=== PATIENT | female | born 1985 | race African-American/Black ===

== ENCOUNTER 2018-03-16 02:06 | Inpatient (IN) | payer OTHER ==
[2018-03-16 02:53] LABS: ABS Basophils 0 10^3/ul (0-0.2); ABS Eosinophils 0.1 10^3/ul (0-0.6); ABS Lymphocytes 1.8 10^3/ul (1.0-4.8); ABS Monocytes 0.4 10^3/ul (0-0.8); ABS Neutrophils 4.8 10^3/ul (1.5-7.7); ABS Nucleated RBC 0 10^3/ul; Eosinophil % 1.1 % (0-6); Hematocrit 34 % (35-47); Hemoglobin 11.1 g/dl (12.0-16.0); Lymphocyte % 25.3 % (25-47); Mean Corpuscular HGB Conc 33 g/dl (31-36); Mean Corpuscular Hemoglobin 28 pg (27-31); Mean Corpuscular Volume 87 fL (80-97); Mean Platelet Volume 9.9 um3 (7.4-10.4); Nucleated Red Blood Cells % 0.1; Platelet Count 144 10^3/ul (150-450); Red Blood Count 3.91 10^6/ul (4.00-5.40); Red Cell Distribution Width 15 % (10.5-15)
--- NOTE | 2018-03-16 02:57 | PN ---
L&D Outpatient: Visit - Reproductive Information Estimated Due Date: 05/04/18 Gestational Age: 33 Weeks and 0 Days : 2 Para: 1 - Reason for Visit Visit Reason: Patient has a diagnosis of marginal previa and presents after an episode of vaginal bleeding at home. - Antepartal Records Antepartal Record: Reviewed, Complicated by: - Microcephaly and Marginal previa L&D Outpatient: ROS - Review of Systems Constitutional: Comfortable CV Complaint: No Respiratory: Shortness of Breath: No Gastrointestinal: No Nausea/Vomiting, Normal Bowel Movement Genitourinary: Bleeding - Not actively bleeding, No Dysuria, No Leaking Fluid Musculoskeletal: No Complaint Movement: Normal L&D Outpatient: Exam Vitals - Most Recent: Temp 98.8 BP 133/86 P 85 RR 18 Pox 100% RA - Cervical Exam Cervical Exam: Deferred - Abdominal Exam Abdomen Exam: Non-Tender, Fundal Height Consistent with Dates - Membranes Membrane Status: Intact - Ultrasound/Biophysical Profile Biophysical Profile: Normal Reactive NST L&D Outpatient: EFM - External Monitor Findings Baseline Heart Rate: 140 External Monitor Findings: Accelerations Present, No Pattern of Variable or Late Decelerations L&D Outpatient: Asses/Plan Assessment: 32 y/o lady with an IUP at 33 weeks EGA, marginal previa with a sentinel episode of vaginal bleeding and hemodinamically stable. Plan: Admit as Inpatient - Observation, Monitoring for bleeding, Steroids for lung maturity.
[2018-03-16] MEDS: Betamethasone INJ* 6 MG/ML 5 ML VIAL (30 MG) IM SCH (04:04)
[2018-03-16 11:17] LABS: ABS Basophils 0 10^3/ul (0-0.2); ABS Eosinophils 0 10^3/ul (0-0.6); ABS Lymphocytes 1.3 10^3/ul (1.0-4.8); ABS Monocytes 0.1 10^3/ul (0-0.8); ABS Neutrophils 7.5 10^3/ul (1.5-7.7); ABS Nucleated RBC 0 10^3/ul; Eosinophil % 0.2 % (0-6); Hematocrit 35 % (35-47); Hemoglobin 11.6 g/dl (12.0-16.0); Lymphocyte % 14.2 % (25-47); Mean Corpuscular HGB Conc 33 g/dl (31-36); Mean Corpuscular Hemoglobin 29 pg (27-31); Mean Corpuscular Volume 87 fL (80-97); Mean Platelet Volume 9.8 um3 (7.4-10.4); Nucleated Red Blood Cells % 0.1; Platelet Count 143 10^3/ul (150-450); Red Blood Count 4.06 10^6/ul (4.00-5.40); Red Cell Distribution Width 14 % (10.5-15); White Blood Count 8.9 10^3/ul (3.5-10.8)
[2018-03-16 12:01] LABS: INR 0.79 (0.77-1.02)
--- NOTE | 2018-03-16 18:48 | PN ---
Medicine Progress Note - Date of Service Date of Service: 03/16/18 - Subjective Subjective: Patient is resting comfortably, she denies vaginal bleeding, abdominal cramps or contractions. admits to movement. - Objective Objective: Current Medications Betamethasone Acet/Betameth SodPhos (Celestone*) 12 mg IM Q24H EDDA Stop: 03/17/18 04:01 Last Admin: 03/16/18 04:04 Dose: 12 mg Vital signs stable afebrile. Intake & Output 03/14/18 03/15/18 03/16/18 03/17/18 06:59 06:59 06:59 06:59 Intake Total 700 Output Total 1000 Balance -300 Weight 160 lb Intake: Oral 700 Output: Rivera 1000 Intake and Output Start: 03/16/18 02: 16 Freq: Status: Active Protocol: Created 03/16/18 02:16 System (Rec: 03/16/18 02:16 System [id number] ) Document 03/16/18 14:00 [id number] (Rec: 03/16/18 14:01 [id number]) Abdomen: Soft non tender and gravid. Laboratory Results - last 24 hr 03/16/18 03/16/18 03/16/18 02:28 02:28 10:58 WBC 7.0 8.9 RBC 3.91 L 4.06 Hgb 11.1 L 11.6 L Hct 34 L 35 MCV 87 87 MCH 28 29 MCHC 33 33 RDW 15 14 Plt Count 144 L 143 L MPV 9.9 9.8 Neut % (Auto) 67.7 84.5 H Lymph % (Auto) 25.3 14.2 L [place] % (Auto) 5.7 0.7 Eos % (Auto) 1.1 0.2 Baso % (Auto) 0.2 0.4 Absolute Neuts (auto) 4.8 7.5 Absolute Lymphs (auto) 1.8 1.3 Absolute Monos (auto) 0.4 0.1 Absolute Eos (auto) 0.1 0 Absolute Basos (auto) 0 0 Absolute Nucleated RBC 0 0 Nucleated RBC % 0.1 0.1 INR (Anticoag Therapy) Fibrinogen Blood Type O Positive Antibody Screen Negative 03/16/18 10:58 WBC RBC Hgb Hct MCV MCH MCHC RDW Plt Count MPV Neut % (Auto) Lymph % (Auto) [place] % (Auto) Eos % (Auto) Baso % (Auto) Absolute Neuts (auto) Absolute Lymphs (auto) Absolute Monos (auto) Absolute Eos (auto) Absolute Basos (auto) Absolute Nucleated RBC Nucleated RBC % INR (Anticoag Therapy) 0.79 Fibrinogen 475.1 H Blood Type Antibody Screen I/P patient with marginal placenta previa and IUP at 33 1/7 weeks admitted after a sentinel bleeding episode. On bedrest monitoring, she is to receive her second dose of Bethametasone early 03/17/18 if stable and no bleeding T/C discharge in Am of 03/17/18. - Labs Labs: Laboratory Results - last 24 hr 03/16/18 03/16/18 03/16/18 02:28 02:28 10:58 WBC 7.0 8.9 RBC 3.91 L 4.06 Hgb 11.1 L 11.6 L Hct 34 L 35 MCV 87 87 MCH 28 29 MCHC 33 33 RDW 15 14 Plt Count 144 L 143 L MPV 9.9 9.8 Neut % (Auto) 67.7 84.5 H Lymph % (Auto) 25.3 14.2 L [place] % (Auto) 5.7 0.7 Eos % (Auto) 1.1 0.2 Baso % (Auto) 0.2 0.4 Absolute Neuts (auto) 4.8 7.5 Absolute Lymphs (auto) 1.8 1.3 Absolute Monos (auto) 0.4 0.1 Absolute Eos (auto) 0.1 0 Absolute Basos (auto) 0 0 Absolute Nucleated RBC 0 0 Nucleated RBC % 0.1 0.1 INR (Anticoag Therapy) Fibrinogen Blood Type O Positive Antibody Screen Negative 03/16/18 10:58 WBC RBC Hgb Hct MCV MCH MCHC RDW Plt Count MPV Neut % (Auto) Lymph % (Auto) [place] % (Auto) Eos % (Auto) Baso % (Auto) Absolute Neuts (auto) Absolute Lymphs (auto) Absolute Monos (auto) Absolute Eos (auto) Absolute Basos (auto) Absolute Nucleated RBC Nucleated RBC % INR (Anticoag Therapy) 0.79 Fibrinogen 475.1 H Blood Type Antibody Screen - Assessment Assessment: TATYANA GARCIA is a 32 year old F. Patient's diagnosis is , LABOR CHECK.
[2018-03-16] MEDS ORDERED: diPHENhydraMINE PO* 50 MG PO ONE (23:00)
--- NOTE | 2018-03-17 02:19 | HP ---
General Information - General Information Maternal Age: 32 Grav: 2 Para: 1 SAB: 0 IEA: 0 Estimated Due Date: 05/04/18 Determined By: Early Ultrasound Gestational Age in Weeks and Days: 33 Weeks and 4 Days Maternal Blood Type and Rh: O Positive - Results this Serology/RPR Result: Non-Reactive Rubella Result: Immune HBsAg Result: Negative HIV Result: Negative GBS Culture Result: Negative Past Medical History Delivery History: Hx Uncomplicated Vaginal Delivery, See Records Pertinent Past Medical History: See Records Past Medical History Comment: Migraines Pertinent Past Surgical History: See Records Past Surgical History Comment: None Pertinent Family History: Non-Contributory - Antepartal Records Antepartal Records: Reviewed, Complicated by: - Placenta previa Review of Systems Constitutional: Comfortable CV Complaint: No Respiratory: Shortness of Breath: No Gastrointestinal: No Nausea/Vomiting, Normal Bowel Movement Genitourinary: Bleeding, No Dysuria Musculoskeletal: No Complaint Neurological: No Headache, No Visual Changes Movement: Normal - Patient admitted secondary to two episodes of significant vaginal bleeding in 24 hrs Exam Allergies/Adverse Reactions: Allergies No Known Allergies Allergy (Verified 12/17/12 23:54) Vital Signs 03/17/18 01:46 O2 Sat by Pulse 100 Oximetry Lab Values - Entire Visit: Laboratory Tests 03/16/18 03/16/18 03/16/18 02:28 02:28 10:58 WBC 7.0 8.9 RBC 3.91 L 4.06 Hgb 11.1 L 11.6 L Hct 34 L 35 MCV 87 87 MCH 28 29 MCHC 33 33 RDW 15 14 Plt Count 144 L 143 L MPV 9.9 9.8 Neut % (Auto) 67.7 84.5 H Lymph % (Auto) 25.3 14.2 L [place] % (Auto) 5.7 0.7 Eos % (Auto) 1.1 0.2 Baso % (Auto) 0.2 0.4 Absolute Neuts (auto) 4.8 7.5 Absolute Lymphs (auto) 1.8 1.3 Absolute Monos (auto) 0.4 0.1 Absolute Eos (auto) 0.1 0 Absolute Basos (auto) 0 0 Absolute Nucleated RBC 0 0 Nucleated RBC % 0.1 0.1 INR (Anticoag Therapy) Fibrinogen Blood Type O Positive Antibody Screen Negative 07/01/18 10:58 WBC RBC Hgb Hct MCV MCH MCHC RDW Plt Count MPV Neut % (Auto) Lymph % (Auto) [place] % (Auto) Eos % (Auto) Baso % (Auto) Absolute Neuts (auto) Absolute Lymphs (auto) Absolute Monos (auto) Absolute Eos (auto) Absolute Basos (auto) Absolute Nucleated RBC Nucleated RBC % INR (Anticoag Therapy) 0.79 Fibrinogen 475.1 H Blood Type Antibody Screen - Measurements Height: 5 ft 4.96 in Weight: 160 lb Weight in lbs: [id number] Body Mass Index (BMI): 26.6 Pre- Weight: 127 lb Weight Gained This : 33 lbs and 0 ozs - Exam Abdomen: No Upper Quadrant Pain Breast: Breast Exam Deferred CVA: No CVA Tenderness Extremities: No Edema Heart: Normal Rhythm/Heart Sounds HEENT: No Significant Findings Lungs: Clear Bilaterally Rectal: Rectal Exam Deferred Reflexes: DTR 2+ Thyroid: No Thyromegaly - Abdominal Exam Abdomen Exam: Non-Tender, Fundal Height Consistent with Dates - Ultrasound/Biophysical Profile Ultrasound Status: Not Done Biophysical Profile: Normal Reactive NST Targeted Exam Findings See L&D Outpatient Visit Provider Note for Findings: N/A - No Cervical exam- Placenta previa Membrane Status: Intact EFM Findings - External Monitor Findings Baseline Heart Rate: 130 External Monitor Findings: Accelerations Present, No Pattern of Variable or Late Decelerations Contractions: None Assessment/Plan - Obstetrical Risk Factors Risk Factors Comment: Placenta previa prematurity - Plan Plan: Observe, Steroids - Date/Time of Admission Date of Admission: 03/17/18 Time of Admission: 01:00
[2018-03-17] MEDS: Betamethasone INJ* 6 MG/ML 5 ML VIAL (30 MG) IM SCH (02:56)
[2018-03-17] MEDS ORDERED: Propofol* 10 MG/ML 20 ML BTL IV PUSH ONE (04:31)
[2018-03-17] MEDS ORDERED: Succinylcholine* 20 MG/ML 10 ML VIAL ONE (04:31)
[2018-03-17] MEDS ORDERED: fentaNYL* 50 MCG/ML 2 ML VIAL (100 MCG VIAL) ONE (04:31)
[2018-03-17] MEDS ORDERED: ceFOXitin 2 GM IVPREMIX* 2 GM/50 ML BAG ONE (04:40)
[2018-03-17] MEDS ORDERED: Midazolam* 1 MG/ML 2 ML VIAL (2 MG) ONE (04:46)
[2018-03-17] MEDS ORDERED: Lidocaine 2% PF * 5 ML VIAL ONE (05:05)
[2018-03-17 05:10] LABS: ABS Basophils 0 10^3/ul (0-0.2); ABS Eosinophils 0 10^3/ul (0-0.6); ABS Lymphocytes 1.9 10^3/ul (1.0-4.8); ABS Monocytes 0.3 10^3/ul (0-0.8); ABS Neutrophils 11.9 10^3/ul (1.5-7.7); ABS Nucleated RBC 0 10^3/ul; Eosinophil % 0 % (0-6); Hematocrit 33 % (35-47); Hemoglobin 10.6 g/dl (12.0-16.0); Lymphocyte % 13.3 % (25-47); Mean Corpuscular HGB Conc 32 g/dl (31-36); Mean Corpuscular Hemoglobin 28 pg (27-31); Mean Corpuscular Volume 87 fL (80-97); Mean Platelet Volume 10.3 um3 (7.4-10.4); Nucleated Red Blood Cells % 0.1; Platelet Count 156 10^3/ul (150-450); Red Blood Count 3.73 10^6/ul (4.00-5.40); Red Cell Distribution Width 15 % (10.5-15); White Blood Count 14.1 10^3/ul (3.5-10.8)
[2018-03-17] MEDS ORDERED: Glycerin ADULT SUPP PR PRN (05:30)
[2018-03-17] MEDS ORDERED: Ondansetron INJ* 2 MG/ML VIAL IV PRN (05:30)
[2018-03-17] MEDS ORDERED: Zolpidem TAB* 5 MG PO PRN (05:30)
[2018-03-17] MEDS ORDERED: Witch Hazel PAD* JAR TOPICAL PRN (05:30)
[2018-03-17] MEDS ORDERED: Acetaminophen TAB* 325 MG PO PRN (05:30)
[2018-03-17] MEDS ORDERED: oxyCODONE/Acetamin 5/325 MG* TAB PO PRN (05:30)
[2018-03-17] MEDS ORDERED: Dibucaine 1% 28.35 GM TUBE PR PRN (05:30)
[2018-03-17] MEDS ORDERED: Naloxone* 0.4 MG/ML 1 ML VIAL IV PRN (05:30)
[2018-03-17 05:31] LABS: INR 0.81 (0.77-1.02)
[2018-03-17] MEDS: fentaNYL* 50 MCG/ML 2 ML VIAL (100 MCG VIAL) IV PRN ×2 (05:34→05:55)
[2018-03-17] MEDS ORDERED: Naloxone* 0.4 MG/ML 1 ML VIAL IV PUSH PRN (06:06)
[2018-03-17] MEDS ORDERED: Metoclopramide IV* 5 MG/ML 2 ML VIAL IV PRN (06:11)
[2018-03-17] MEDS ORDERED: Morphine PCA ADULT* 5 MG/ML 30 ML PCA SCH (07:00)
[2018-03-17] MEDS: Simethicone TAB* 80 MG TAB.CHEW PO SCH ×4 (08:56→20:18)
[2018-03-17] MEDS: Docusate CAP* 100 MG PO SCH ×3 (08:56→20:19)
[2018-03-17] MEDS: Ibuprofen TAB* 600 MG PO PRN ×2 (12:04→17:45)
[2018-03-17] MEDS: oxyCODONE/Acetamin 5/325 MG* TAB PO PRN ×2 (17:45→21:50)
[2018-03-18] MEDS: Ibuprofen TAB* 600 MG PO PRN ×4 (02:55→19:45)
[2018-03-18] MEDS: oxyCODONE/Acetamin 5/325 MG* TAB PO PRN ×5 (02:56→19:45)
[2018-03-18 07:04] LABS: ABS Basophils 0.1 10^3/ul (0-0.2); ABS Eosinophils 0 10^3/ul (0-0.6); ABS Lymphocytes 2.2 10^3/ul (1.0-4.8); ABS Monocytes 0.6 10^3/ul (0-0.8); ABS Nucleated RBC 0 10^3/ul; Eosinophil % 0 % (0-6); Hematocrit 24 % (35-47); Hemoglobin 7.8 g/dl (12.0-16.0); Lymphocyte % 10.9 % (25-47); Mean Corpuscular HGB Conc 33 g/dl (31-36); Mean Corpuscular Hemoglobin 29 pg (27-31); Mean Corpuscular Volume 87 fL (80-97); Mean Platelet Volume 9.3 um3 (7.4-10.4); Nucleated Red Blood Cells % 0.1; Platelet Count 144 10^3/ul (150-450); Red Blood Count 2.71 10^6/ul (4.00-5.40); Red Cell Distribution Width 15 % (10.5-15); White Blood Count 19.8 10^3/ul (3.5-10.8)
[2018-03-18] MEDS: Docusate CAP* 100 MG PO SCH ×3 (07:37→21:16)
[2018-03-18] MEDS: Ferrous Gluconate TAB* 324 MG TAB PO SCH ×2 (10:01→21:17)
[2018-03-18] MEDS: Simethicone TAB* 80 MG TAB.CHEW PO SCH ×3 (10:01→21:17)
[2018-03-18] MEDS ORDERED: Benzocaine/Menthol LOZ* 1 LOZENGE PO PRN (17:29)
[2018-03-19] MEDS: oxyCODONE/Acetamin 5/325 MG* TAB PO PRN ×5 (00:03→21:38)
--- NOTE | 2018-03-19 02:22 | OP ---
OPERATIVE REPORT: DATE OF OPERATION: 03/17/18 DATE OF : 85 SURGEON: Ephraim Niño MD ELECTRICAL SERVICE TECHNICIAN: Dr. Izaguirre. ANESTHESIA: General anesthetic with endotracheal intubation. PRE-OP DIAGNOSIS: Intrauterine at 33 weeks, placenta previa active vaginal bleeding and hemorrhaging. POST-OP DIAGNOSIS: Intrauterine at 33 weeks, placenta previa active vaginal bleeding and hemorrhaging. OPERATIVE PROCEDURE: Primary low transverse section, stat. ESTIMATED BLOOD LOSS: 500 cc. URINE OUTPUT: Clear. FLUIDS: She received 1700 cc of IV crystalloid fluid. FINDINGS: Delivery of a viable male infant with a weight of 2011 g. Baby was transported immediately to the NICU. The placenta was grossly intact. The uterus, adnexa, bowel and bladder were within normal limits and there were no complications. DESCRIPTION OF PROCEDURE: The patient was taken to the operating room, where she was identified. She was placed on the operating table in the supine position where a general anesthetic was obtained without difficulty after being prepped and draped in a normal sterile fashion. A Pfannenstiel skin incision was made with a knife and carried through the underlying layer of fascia. The fascia was then nicked in the midline and extended laterally with curved Caruso scissors. The fascia was grasped inferiorly with Luis Alfredo clamps and dissected off sharply from the rectus muscle. The rectus muscle was in the midline bluntly. The peritoneum was identified, grasped with pickups, entered sharply with Metzenbaum scissors and extended superiorly and inferiorly bluntly. A bladder blade was inserted into the patient's abdomen. A bladder flap was created using Metzenbaum scissors over which the bladder blade was then reinserted. A low transverse uterine incision was made with a knife, extended laterally with bandage scissors. Amniotic sac was ruptured. 's head was then grasped and delivered atraumatically. The cord was clamped and cut. Infant was handed off to awaiting roller coaster designer. Cord bloods were obtained. The placenta was removed manually. The uterus was then exteriorized , cleared of all clot and debris using moist laparotomy sponges. The uterine incision was then closed using 0 Polysorb suture in a running locked fashion with a second imbricating layer of 0 Polysorb suture. The uterine incision was noted to be hemostatic. The uterus was then returned to the patient's abdomen. The gutters were then cleared of all clot and debris using moist laparotomy sponges. All the sponges were removed from the patient's abdomen. The peritoneum was then closed using 3-0 Polysorb suture in a running fashion. The fascia was closed using an 0 Polysorb suture in a running fashion and the skin was closed with 4-0 Monocryl subcuticular stitch. The patient tolerated the procedure well. Sponge, lap, needle counts were correct x2. She was then transferred to recovery room area in stable condition. [id number]/[facility] #: [id number] [facility]ITALKamilla
[2018-03-19] MEDS: Ibuprofen TAB* 600 MG PO PRN (03:59)
[2018-03-19] MEDS: Simethicone TAB* 80 MG TAB.CHEW PO SCH ×4 (08:55→21:00)
[2018-03-19] MEDS: Ferrous Gluconate TAB* 324 MG TAB PO SCH (08:55)
[2018-03-19] MEDS: Docusate CAP* 100 MG PO SCH ×3 (08:55→20:01)
[2018-03-19] MEDS: Ibuprofen TAB* 600 MG PO SCH ×2 (12:14→20:01)
[2018-03-20] MEDS: oxyCODONE/Acetamin 5/325 MG* TAB PO PRN ×3 (01:39→12:25)
[2018-03-20] MEDS: Ibuprofen TAB* 600 MG PO SCH ×2 (05:41→12:26)
[2018-03-20 07:57] VITALS: BP 115/65
[2018-03-20] MEDS: Simethicone TAB* 80 MG TAB.CHEW PO SCH ×3 (08:51→12:26)
[2018-03-20] MEDS: Docusate CAP* 100 MG PO SCH ×2 (08:53→14:02)
[2018-03-20] MEDS ORDERED: Ferrous Gluconate TAB* 324 MG TAB PO SCH (09:00)
== END 2018-03-20 16:20 | disposition home or self-care (01) | DRG 766 ==
LOC: MCHOBOUT 02:06 → MCHOB 03-17 01:36
PROVIDERS: ADMIT Obstetrics & Gynecology; ATTEND Obstetrics & Gynecology
PROC: 30233N1 Transfusion of Nonautologous Red Blood Cells into Peripheral Vein, Percutaneous Approach (ICD-10-PCS; 2018-03-17)
PROC: 10D00Z1 Extraction of Products of Conception, Low, Open Approach (ICD-10-PCS; principal; 2018-03-17 04:31)
DX: O44.33 Partial placenta previa with hemorrhage, third trimester (principal); O90.81 Anemia of the puerperium; D64.89 Other specified anemias; Z3A.33 33 weeks gestation of pregnancy; Z37.0 Single live birth
CPT/HCPCS: 36415; 85025; 85384; 85610; 86850; 86900; 86901; 86922; 88307; A9270-GY; J0330; J0694; J0702; J2250; J2270; J2704; J3010